=== PATIENT | male | born 1935 | race Caucasian/White ===

== ENCOUNTER → 2018-12-26 | Outpatient (CLI) | payer BC, MEDICARE ==
[~2018-12-26] MED LIST: /AUGM875TA OR; AVAP300T OR; DILA100C OR; FLOM0.4C39 OR; LEXA1TAB2 OR; LIPI20TA OR; LOPR50TA OR; NEXI1CAP3 OR; PLAV75TA2 OR; PROT1TAB2 OR; ZETI10TA OR; [UNRECOGNIZED DRUG - CODE] OR; [UNRECOGNIZED DRUG - OTHER]; [UNRECOGNIZED DRUG - OTHER]; aspirin OR; dilantin OR
--- NOTE | 2018-12-26 16:20 | REP ---
Renal ultrasound: The studies performed evaluate for renal mass and renal calculi: The right kidney measures 11.2 x 5.6 x 4.8 cm. The left kidney measures 11.1 x 4.8 x 5.4 cm. The kidneys are normal size. Renal cortical echogenicity is normal bilaterally. There is no hydronephrosis. There are no renal calculi. There are no solid renal masses. There are right renal cysts as follows: Upper pole 2.7 cm, Bosniak type 1. Upper pole 2.5 cm, Bosniak type 1. Mid pole, 2.2 cm, Bosniak type 1. There are left renal cysts as follows: Upper pole, 5.4 cm, Bosniak type 1. Upper pole, 1.9 cm, Bosniak type 1. Lower pole, 2.7 cm, Bosniak type 1. Bladder: The bladder is nondistended and cannot be further evaluated. Impression: No solid renal masses are identified. There are multiple bilateral renal cysts as described. There are no renal calculi. There is no hydronephrosis. Electronically Signed by Job Solano MD 12/26/2018 03:17 P
== END ==
LOC: M RAD 13:17
PROVIDERS: ATTEND Internal Medicine
DX: N40.0 Benign prostatic hyperplasia without lower urinary tract symptoms (principal); K40.91 Unilateral inguinal hernia, without obstruction or gangrene, recurrent; N28.1 Cyst of kidney, acquired